=== PATIENT | male | born 1940 | race Caucasian/White ===

== ENCOUNTER 2020-01-28 20:29 | Inpatient (IN) | payer OTHER, SELFPAY ==
[~2020-01-28] VITALS: Ht 170.2 cm; Wt 81.2 kg
[2020-01-28 20:40] VITALS: BP 111/64
--- NOTE | 2020-01-28 20:40 | NUR ---
79 Y/O MALE BIBA, FROM ASSISTED SENIOR CARE FROM [facility]. PT HAD GROUND LEVEL FALL AND WAS C/O OF R PELVIS PAIN. PT IS POOR HISTORIAN. PT IS CONFUSED. PT DENIES PAIN AT THIS TIME. MEDHX: DM, ALZEHIMERS, DEMENTIA. NKA
--- NOTE | 2020-01-28 20:42 | NUR ---
XRAY AT BEDSIDE
--- NOTE | 2020-01-28 21:14 | NUR ---
LAB AT BEDSIDE
[2020-01-28] MEDS ORDERED: GLIP5TAB4 PO (21:20)
[2020-01-28] MEDS ORDERED: SENN-73 PO (21:20)
[2020-01-28] MEDS ORDERED: ALBU0.5S1 IH (21:20)
[2020-01-28] MEDS ORDERED: QUET25TA PO (21:20)
[2020-01-28] MEDS ORDERED: MSCON15 PO (21:20)
[2020-01-28] MEDS ORDERED: ASCO500T95 PO (21:20)
[2020-01-28] MEDS ORDERED: CHOL50005 PO (21:20)
[2020-01-28] MEDS ORDERED: [UNRECOGNIZED DRUG - CODE] PO (21:20)
[2020-01-28] MEDS ORDERED: ZINC220C28 PO (21:20)
[2020-01-28] MEDS ORDERED: ONDA4TAB PO (21:20)
[2020-01-28] MEDS ORDERED: ATI.5 PO (21:20)
--- NOTE | 2020-01-28 21:20 | NUR ---
URINE AND ZOE SWAB COLLECTED AND SENT TO LAB
[2020-01-28 21:34] LABS: BASOPHILS % (AUTO) 0.7 % (0.0-2.0); EOSINOPHILS # (AUTO) 0.1 K/uL (0-0.4); EOSINOPHILS % (AUTO) 1.7 % (0.0-4.0); HEMATOCRIT 23.1 % (36-52); HEMOGLOBIN 7.5 g/dL (12.0-18.0); LYMPHOCYTES # (AUTO) 1.3 K/uL (2.0-11.5); LYMPHOCYTES % (AUTO) 21.5 % (20.5-51.1); MEAN CORPUSCULAR HEMOGLOBIN 28 pg (27-31); MEAN CORPUSCULAR HGB CONC 33 g/dL (33-37); MEAN CORPUSCULAR VOLUME 84.9 fL (80-94); MONOCYTES # (AUTO) 0.7 K/uL (0.8-1.0); MONOCYTES % (AUTO) 12.6 % (1.7-9.3); NEUTROPHILS # (AUTO) 3.8 K/uL (1.8-7.7); NEUTROPHILS % (AUTO) 63.5 % (42.2-75.2); PLATELET COUNT (AUTO) 144 K/uL (140-450); RED BLOOD CELL COUNT(AUTO) 2.72 MIL/uL (4.20-6.10); RED CELL DISTRIBUTION WIDTH 14.6 % (11.6-13.7); WHITE BLOOD COUNT (AUTO) 5.9 K/uL (4.8-10.8)
[2020-01-28] MEDS ORDERED: NACL 0.9% 500 ML IV ONE (21:35)
--- NOTE | 2020-01-28 21:50 | NUR ---
PT TAKEN TO CT SCAN VIA KP
[2020-01-28 21:52] LABS: PROTHROMBIN TIME 11.1 secs (10.8-13.4)
--- NOTE | 2020-01-28 22:02 | NUR ---
PT RETURNED FROM CT SCAN
[2020-01-28 22:12] LABS: ALBUMIN 2.9 g/dL (3.4-5.0); APPEARANCE,URINE SL CLOUDY (CLEAR); ASPARTATE AMINOTRANSFERASE 15 U/L (15-37); BILIRUBIN,URINE NEGATIVE (NEGATIVE); BLOOD, URINE NEGATIVE (NEGATIVE); CARBON DIOXIDE 29.8 mmol/L (21-32); CHLORIDE 105 mmol/L (98-107); COLOR,URINE DARK YELLOW (YELLOW); CREATININE 0.8 mg/dL (0.6-1.3); GLUCOSE 237 mg/dL (74-106); LEUKOCYTE ESTERASE ,URINE NEGATIVE (NEGATIVE); NITRITE, URINE POSITIVE (NEGATIVE); POTASSIUM 3.8 mmol/L (3.5-5.1); SODIUM SERUM 140 mmol/L (136-145); TOTAL BILIRUBIN 0.3 mg/dL (0.0-1.0); UGLUCOSE NEGATIVE (NEGATIVE); UREA NITROGEN, BLOOD 25 mg/dL (7-18)
[2020-01-28 22:49] LABS: RBC,URINE 0-5 /HPF (0-5); WBC,URINE 0-5 /HPF (0-5)
--- NOTE | 2020-01-29 | NUR ---
PT HAS EYES CLOSED, RESPIRAITONS EVEN AND UNLABORED. CHEST RISE IS SYMMETRICAL. WILL CONTINUE TO MONITOR.
[2020-01-29] MEDS ORDERED: DEXTROSE 5% 1,000 ML IV ONE (00:20)
--- NOTE | 2020-01-29 02:45 | NUR ---
PT HAS EYES CLOSED, RESPIRAITONS EVEN AND UNLABORED. CHEST RISE IS SYMMETRICAL. WILL CONTINUE TO MONITOR.
--- NOTE | 2020-01-29 04:40 | NUR ---
PT HAS EYES CLOSED, RESPIRAITONS EVEN AND UNLABORED. CHEST RISE IS SYMMETRICAL. WILL CONTINUE TO MONITOR.
--- NOTE | 2020-01-29 05:39 | NUR ---
INSERTED IV R UPPER ARM 20 G.
--- NOTE | 2020-01-29 07:05 | NUR ---
UPDATED PT STATUS TO PT'S DAUGHTER MERT [phone]
--- NOTE | 2020-01-29 07:15 | NUR ---
REPORT GIVEN TO MARAH FLORES FOR CONTINUITY OF CARE
--- NOTE | 2020-01-29 07:20 | NUR ---
REPORT RECEIVED FROM ABIMBOLA FLORES FOR CONTINUITY OF CARE
--- NOTE | 2020-01-29 07:39 | NUR ---
PT, REPOSITIONED FOR COMFORT. LINEN, GOWN AND DIAPER CHANGE DONE. PT RESTING, VSS, NO SIGNS OF DISTRESS NOTED AT THIS TIME.
--- NOTE | 2020-01-29 09:41 | NUR ---
PT HAS EYES CLOSED, RESPIRATIONS EVEN AND UNLABORED. CHEST RISE IS SYMMETRICAL. VSS. WILL CONTINUE TO MONITOR.
[2020-01-29] MEDS ORDERED: LORazepam 2 MG/ML VIAL IM/IVP PRN (12:00)
[2020-01-29] MEDS ORDERED: ZOLPIDEM 5 MG TAB PO PRN (12:55)
[2020-01-29] MEDS ORDERED: POTASSIUM CHLORIDE 10 MEQ TABER PO PRN (12:55)
[2020-01-29] MEDS ORDERED: ONDANSETRON 4 MG/2 ML VIAL IM/IVP PRN (12:55)
[2020-01-29] MEDS ORDERED: ACETAMINOPHEN 325 MG TAB PO PRN (12:55)
[2020-01-29] MEDS ORDERED: DOCUSATE SODIUM 100 MG GELCAP PO PRN (12:55)
[2020-01-29] MEDS ORDERED: MAG SULF 2000 MG/WATER PREMIX 50 ML IV PRN (12:55)
[2020-01-29] MEDS ORDERED: ALBUTEROL SULFATE/IPRATROPIU 3 ML SOL IH PRN (13:10)
--- NOTE | 2020-01-29 13:45 | NUR ---
PT RESTLESS, PULLED OUT IV, PRESSURE/ DRESSING APPRIED, 20 G IV TO LEFT WRIST INSERTED AND COVERED WITH COBAN DRESSING. 5% DEXTROSE CONTINUED AT 60ML/HR
[2020-01-29] MEDS: LORazepam 2 MG/ML VIAL IM/IVP PRN (14:20)
[2020-01-29 14:25] LABS: BASOPHILS % (AUTO) 0.5 % (0.0-2.0); EOSINOPHILS % (AUTO) 0.4 % (0.0-4.0); HEMATOCRIT 23.2 % (36-52); HEMOGLOBIN 7.8 g/dL (12.0-18.0); LYMPHOCYTES # (AUTO) 1.7 K/uL (2.0-11.5); LYMPHOCYTES % (AUTO) 16.8 % (20.5-51.1); MEAN CORPUSCULAR HEMOGLOBIN 28 pg (27-31); MEAN CORPUSCULAR HGB CONC 34 g/dL (33-37); MEAN CORPUSCULAR VOLUME 84.1 fL (80-94); MONOCYTES # (AUTO) 0.9 K/uL (0.8-1.0); MONOCYTES % (AUTO) 9.3 % (1.7-9.3); NEUTROPHILS # (AUTO) 7.4 K/uL (1.8-7.7); PLATELET COUNT (AUTO) 145 K/uL (140-450); RED BLOOD CELL COUNT(AUTO) 2.76 MIL/uL (4.20-6.10); RED CELL DISTRIBUTION WIDTH 14.7 % (11.6-13.7); WHITE BLOOD COUNT (AUTO) 10.2 K/uL (4.8-10.8)
[2020-01-29] MEDS ORDERED: AZITHROMYCIN 250 MG TAB PO SCH (14:30)
[2020-01-29 14:40] LABS: ANION GAP 11.2 (8-16); CARBON DIOXIDE 26.1 mmol/L (21-32); CHLORIDE 103 mmol/L (98-107); CREATININE 0.7 mg/dL (0.6-1.3); GLUCOSE 230 mg/dL (74-106); POTASSIUM 3.3 mmol/L (3.5-5.1); SODIUM SERUM 137 mmol/L (136-145); UREA NITROGEN, BLOOD 15 mg/dL (7-18)
--- NOTE | 2020-01-29 14:43 | NUR ---
MRSA SWAB COLLECTED AND WALKED TO LAB
--- NOTE | 2020-01-29 14:45 | NUR ---
MRSA SWAB COMPLETED AND WALKED TO LAB
--- NOTE | 2020-01-29 14:50 | NUR ---
PT TAKEN TO CT
[2020-01-29 14:52] LABS: CHOL/HDL RATIO 3.6 (1-4.5); MAGNESIUM 1.9 mg/dL (1.8-2.4); PHOSPHORUS 2.2 mg/dL (2.5-4.9); THYROID STIMULATING HORMONE 1.06 uIU/mL (0.34-3.74)
--- NOTE | 2020-01-29 15:10 | NUR ---
PT RETURNED FROM CT
[2020-01-29] MEDS ORDERED: cefTRIAXone 1,000 MG VIAL ONE (15:11)
--- NOTE | 2020-01-29 16:10 | NUR ---
PT RESTLESS AND PULLING AT IV SITE, PT WAS REORIENTED AND POSITIONED FOR COMFORT, SIDERAILS UP X2. VSS
--- NOTE | 2020-01-29 16:36 | NUR ---
PT DAUGHTER MERT CALLED TO GET UPDATE ON PT, CONTACT INFO:
--- NOTE | 2020-01-29 17:43 | NUR ---
PT RESTLESS AND PULLING AT IV SITE, PT WAS REORIENTED AND POSITIONED FOR COMFORT, SIDERAILS UP X2. VSS
[2020-01-29] MEDS: ALBUTEROL SULFATE/IPRATROPIU 3 ML SOL IH SCH (18:00)
--- NOTE | 2020-01-29 18:44 | NUR ---
PT CONTINUES TO BE RESTLESS AND PULLING AT IV SITE, COBAN RE APPLIED TO IV SITE, PT WAS REORIENTED, CLEANED AND POSITIONED FOR COMFORT, SIDERAILS UP X2. VSS
--- NOTE | 2020-01-29 19:09 | NUR ---
RECEIVED REPORT FROM SANDRA CRYSTAL FOR CONTINUATION OF CARE.
--- NOTE | 2020-01-29 19:11 | NUR ---
Pt report given to YENIFER/DANIELLE FLORES. Transfer of care at this time.
--- NOTE | 2020-01-29 19:15 | NUR ---
PT IS LAYING DOWN, VISIBLE RISE AND FALL OF CHEST NOTED. BED IS LOCKED AND IN LOWEST POSITION, PT IS CONNECTED TO THE HOTEL OPERATION MANAGER. PT IS NOT IN ANY ACUTE DISTRESS AT THIS TIME. WILL CONTINUE TO MONITOR.
--- NOTE | 2020-01-29 22:02 | NUR ---
PT LAYING IN BED, TAKING OFF PIPE INSPECTOR AND PULSE OX. PT BECAME AGGRESSIVE WHEN TRYING TO REPLACE CARDIAC ELECTRODES BY GRABBING AND SQUEEZING ARM.
--- NOTE | 2020-01-29 22:41 | NUR ---
PT WAS ATTEMPTING TO CHEW PULSE OX, REMOVED FROM PTS REACH. PT POSITIONED FOR COMFORT. BED IS LOCKED AND IN LOWEST POSITION. PT IS NOT IN ANY ACUTE DISTRESS AT THIS TIME. WILL CONTINUE TO MONITOR.
--- NOTE | 2020-01-30 | NUR ---
CALLED SANDRA MENDEZ BY PHONE TO GIVE REPORT FOR TRANSFER OF CARE.
--- NOTE | 2020-01-30 00:20 | NUR ---
RECEIVED PATIENT IN STABLE CONDITION FROM ER FOR CONTINUITY OF CARE. AAOX1, ABLE TO MAKE SIMPLE NEEDS KNOWN. RESPIRATIONS EVEN, UNLABORED. SKIN ASSESSMENT COMPLETE. SKIN WARM, DRY AND INTACT. PATIENT C/O RIGHT HIP PAIN 11/16. WILL MEDICATE ORDERED. ABDOMEN SOFT, NONTENDER, NONDISTENDED. BOWEL SOUNDS ACTIVE X4 QUADRANTS. PATIENT IS INCONTINENT OF B/B. PATIENT ORIENTED TO ROOM/STAFF AND CALL LIGHT. PLAN OF CARE DISCUSSED. MSRA SCREEN COMPLETED. SAFETY PRECAUTIONS IN PLACE. CALL LIGHT WITHIN REACH.
--- NOTE | 2020-01-30 00:20 | NUR ---
Patient will be admitted to care of DR. BROTHERS. Admited to TELEMETRY. Will go to room 106B. Belongings list completed. Report to SANDRA MENDEZ.
[2020-01-30 00:25] VITALS: BP 132/84
[2020-01-30] MEDS: MORPHINE SULFATE 2 MG/ML SYR IVP PRN ×2 (00:35→04:33)
--- NOTE | 2020-01-30 01:00 | NUR ---
PATIENT WITH EPISODES OF CONFUSION. CONTINUES TO REMOVE LEADS. RISKS AND BENEFITS EXPLAINED. PATIENT CANNOT COMPREHEND. FREQUENT ROUNDS BY ALL STAFF. SAFETY PRECAUTIONS IN PLACE. CALL LIGHT WITHIN REACH.
[2020-01-30] MEDS: LORazepam 2 MG/ML VIAL IM/IVP PRN (02:09)
--- NOTE | 2020-01-30 03:48 | NUR ---
MADE ROUNDS. PATIENT IS RESTING COMFORTABLY IN BED. NO C/O PAIN. NO S/S ACUTE DISTRESS. CALL LIGHT WITHIN REACH. SAFETY PRECAUTIONS IN PLACE.
[2020-01-30 04:08] VITALS: BP 131/76
--- NOTE | 2020-01-30 05:50 | NUR ---
PATIENT IS RESTING COMFORTABLY IN BED. NO S/S ACUTE DISTRESS. INCONTINENT CARE RENDERED. SAFETY PRECAUTIONS IN PLACE. CALL LIGHT WITHIN REACH.
[2020-01-30] MEDS: ALBUTEROL SULFATE/IPRATROPIU 3 ML SOL IH SCH ×3 (06:00→18:00)
--- NOTE | 2020-01-30 07:15 | NUR ---
RECEIVED BEDSIDE REPORT FROM NIGHTSHIFT NURSE. PT RESTING IN BED. ABLE TO MAKE SOME NEEDS KNOWN. RESPIRATIONS EVEN AND UNLABORED WITH NO SOB OR RESPIRATORY DISTRESS. SKIN WARM AND DRY TO TOUCH. IV SITE IN LFA 20G IS CLEAN, DRY, AND INTACT. SAFETY MEASURES IN PLACE. WILL CONTINUE TO MONITOR
[2020-01-30 07:29] LABS: BASOPHILS % (AUTO) 0.5 % (0.0-2.0); EOSINOPHILS % (AUTO) 0.2 % (0.0-4.0); HEMATOCRIT 23.5 % (36-52); HEMOGLOBIN 7.9 g/dL (12.0-18.0); LYMPHOCYTES # (AUTO) 0.7 K/uL (2.0-11.5); LYMPHOCYTES % (AUTO) 7.9 % (20.5-51.1); MEAN CORPUSCULAR HEMOGLOBIN 29 pg (27-31); MEAN CORPUSCULAR HGB CONC 34 g/dL (33-37); MEAN CORPUSCULAR VOLUME 85.3 fL (80-94); MONOCYTES % (AUTO) 10.7 % (1.7-9.3); NEUTROPHILS # (AUTO) 7.2 K/uL (1.8-7.7); NEUTROPHILS % (AUTO) 80.7 % (42.2-75.2); PLATELET COUNT (AUTO) 151 K/uL (140-450); RED BLOOD CELL COUNT(AUTO) 2.75 MIL/uL (4.20-6.10); RED CELL DISTRIBUTION WIDTH 14.6 % (11.6-13.7); WHITE BLOOD COUNT (AUTO) 8.9 K/uL (4.8-10.8)
[2020-01-30 07:35] LABS: ANION GAP 13.3 (8-16); CARBON DIOXIDE 26.8 mmol/L (21-32); CHLORIDE 103 mmol/L (98-107); CREATININE 0.6 mg/dL (0.6-1.3); GLUCOSE 255 mg/dL (74-106); POTASSIUM 4.1 mmol/L (3.5-5.1); SODIUM SERUM 139 mmol/L (136-145); UREA NITROGEN, BLOOD 17 mg/dL (7-18)
[2020-01-30 07:43] LABS: PHOSPHORUS 3.1 mg/dL (2.5-4.9)
[2020-01-30 08:00] VITALS: BP 123/57
[2020-01-30 08:07] LABS: T4 (THYROXINE) 6.9 ug/dL (4.5-12.0)
[2020-01-30] MEDS: AZITHROMYCIN 250 MG TAB PO SCH (08:58)
--- NOTE | 2020-01-30 09:05 | NUR ---
ADMINISTERED SCHED MED PRESCRIBED PER MD ORDER. PT TOLERATED WELL. MEDICATION EDUCATION PERFORMED. PT VERBALIZED UNDERSTANDING. SAFETY MEASURES IN PLACE. WILL CONTINUE TO MONITOR
--- NOTE | 2020-01-30 11:15 | NUR ---
SOCIAL WORK NOTE: Patient's Orientation Unable To Assess Information Provided By MERT GUERRA/DEBORAH HO - CHILDREN Comments SW WAS UNABLE TO MEET PATIENT AT BEDSIDE. SW COMPLETED ASSESSMENT WITH SON: DEBORAH HO AND DAUGHTER: MERT GUERRA. Appointment Clerk, Realtionship and Phone Number DEBORAH HO SON [phone] MERT GUERRA DAUGHTER [phone] Healthcare Power of Maint Mechanic No Does Patient Have a POLST Yes Identifying Problems No Social Work Triggers Is A Social Work Consult Needed No Mandate Report Filed No Explanation Of Identifying Problems PATIENT IS AN 79-YEAR-OLD MALE ADMITTED FOR SEVERE ANEMIA AND RIGHT HIP FRACTURE. PATIENT HAS PMHX OF ALZHEIMER'S, FRACTURE OF RIGHT PROXIMAL FEMUR, BPH, CAD, AND PNEUMONIA. PATIENT WAS ADMITTED FROM [facility]. Admitted From Assisted Living/Resident Hospice Provider [facility] - [phone] Pre-Admission Level Of Functioning Status Total Care Level Of Functioning Comment PER DAUGHTER, PATIENT REQUIRES TOTAL ASSISTANCE. PATIENT NEEDS ASSISTANCE PREPARING MEALS, GETTING DRESSED, BATHING, TOILETING, AND NEEDS CONSTANT MONITORING. Prior Resources/Services Used In Last 12 Months Assisted Living Prior DME No Prior DME Used Dialysis Comments N/A Living Situation Asst'd Living/Board &Care Other Living Situation/Comment PATIENT IS A RESIDENT AT [facility] [phone] Patient Had Caregiver No Home Support No Caregiver Issues Financial Issues No Known Financial Issue Referral To The Financial Counselor Needed No Factors/Needs No D/C Needs Identified Explanation And Or Other Factors Affecting/Possible DC Needs PER DAUGHTER, FAMILY WOULD PREFER IF PATIENT WAS DISCHARGED TO SNF. Pt/Rep Participated In Discharge Plan Yes Patient/Family Agress With Discharge Plan Yes Discharge Plan Comments TENTATIVE DISCHARGE PLAN IS FOR PATIENT TO BE DISCHARGED TO SNF. DC Plan Status Initiated Addendum: 01/31/20 at 1121 by Carroll Krueger HERMINIO CONTACTED [facility] [phone]. HERMINIO VERIFIED THAT PATIENT WAS RECEIVING SERVICES FROM HOSPICE AND SPOKE TO SANIA. PER SANIA, PATIENT WAS RECEIVING SERVICES PRIOR TO HOSPITALIZATION.
[2020-01-30 12:00] VITALS: BP 130/72
--- NOTE | 2020-01-30 12:00 | NUR ---
FOUND PATIENT HAS TAKEN OUT INTACT IV CANNULA. PT CONFUSED AND DID NOT KNOW WHY HE HAD IT THERE. NEW IV INSERTED IN LAC 20G IS CLEAN, DRY, AND INTACT. SAFETY MEASURES IN PLACE. WILL CONTINUE TO MONITOR
--- NOTE | 2020-01-30 13:28 | NUR ---
PT WOULD NOT ALLOW RT TO PLACE PULSE OX AND GIVE BREATHING TX PT STATED NO
--- NOTE | 2020-01-30 15:30 | NUR ---
FOUND PT PLAYING WITH INTACT IV CANNULA. PT HAS REMOVED INTACT IV CANNULA. NO SIGNS OF DISTRESS NOTED. NEW IV SITE PLACED IN LFA 20G IS CLEAN, DRY, AND, INTACT. WILL CONTINUE TO MONITOR
--- NOTE | 2020-01-30 15:46 | NUR ---
ADMINISTERED SCHED MED PRESCRIBED PER MD ORDER. PT TOLERATED WELL. MEDICATION EDUCATION PERFORMED. PT VERBALIZED UNDERSTANDING. SAFETY MEASURES IN PLACE. WILL CONTINUE TO MONITOR
[2020-01-30] MEDS ORDERED: BACITRACIN 50000 UNITS/1 VIAL ONE (15:56)
--- NOTE | 2020-01-30 16:21 | NUR ---
PATIENT TAKEN OFF TO SURGERY. REPORT GIVEN AT BEDSIDE. WILL CONTINUE TO MONITOR
[2020-01-30] MEDS: BLOOD GLUCOSE MONITORING 1 DEV DEV FS SCH ×2 (16:30→21:39)
[2020-01-30] MEDS ORDERED: ETOMIDATE 20 MG/10 ML VIAL IVP ONE (16:46)
[2020-01-30] MEDS ORDERED: SUCCINYLCHOLINE CHLORIDE 200 MG/10 ML VIAL IVP ONE (17:00)
[2020-01-30] MEDS ORDERED: METOCLOPRAMIDE 10 MG/2 ML INJ VIAL ONE (17:00)
[2020-01-30] MEDS ORDERED: GLYCOPYRROLATE 0.2 MG/ML VIAL ONE (17:00)
[2020-01-30] MEDS ORDERED: ONDANSETRON 4 MG/2 ML VIAL ONE (17:00)
[2020-01-30] MEDS ORDERED: SEVOFLURANE 250 ML BTL INH ONE (17:00)
[2020-01-30] MEDS ORDERED: ROCURONIUM 50 MG/5 ML VIAL IV ONE (17:00)
[2020-01-30] MEDS ORDERED: DEXAMETHASONE 4 MG/ML VIAL ONE (17:00)
[2020-01-30] MEDS ORDERED: MIDAZOLAM 2 MG/2 ML VIAL ONE (17:00)
[2020-01-30] MEDS ORDERED: NEOSTIGMINE 1:1000 10 MG/10 ML VIAL ONE (17:00)
[2020-01-30] MEDS ORDERED: fentaNYL citrate 0.05 MG/ML VIAL ONE (17:00)
[2020-01-30] MEDS ORDERED: HYDROmorphone 1 MG/ML AMP IVP PRN (17:50)
[2020-01-30] MEDS ORDERED: MEPERIDINE 25 MG/ML SYR IVP PRN (17:50)
[2020-01-30] MEDS ORDERED: NACL 0.9% 1,000 ML IV SCH (17:50)
[2020-01-30] MEDS ORDERED: ONDANSETRON 4 MG/2 ML VIAL IVP PRN (17:50)
[2020-01-30] MEDS ORDERED: BLOOD GLUCOSE MONITORING 1 DEV DEV FS SCH (17:50)
--- NOTE | 2020-01-30 18:13 | NUR ---
PATIENT STILL IN SURGERY. WILL CONTINUE TO MONITOR
[2020-01-30] MEDS ORDERED: DEXTROSE 50% 50 ML SYR IVP PRN (18:40)
--- NOTE | 2020-01-30 19:28 | NUR ---
ENDORSED AT BEDSIDE TO NIGHTSHIFT NURSE. PT IS STABLE
--- NOTE | 2020-01-30 19:33 | NUR ---
RECEIVED REPORT FROM DAY SHIFT NURSE. PT STILL IN SURGERY.
[2020-01-30 20:00] VITALS: BP 97/58
--- NOTE | 2020-01-30 20:20 | NUR ---
PT CAME BACK FROM SURGERY VIA GURNEY. RECEIVED REPORT FROM OR NURSE. PT DROWSY BUT AROUSABLE. PT WITH 2 DRESSINGS ON RIGHT HIP AREA. DRESSING CLEAN, DRY, AND INTACT. NO BLEEDING NOTED. PT WITH LOPEZ CATHETER IN PLACE, DRAINING WELL TO YELLOW URINE. IV ACCESS ON RIGHT HAND G20 IN PLACE, IVF INFUSING WELL. VS STABLE. NO S/SX OF DISTRESS NOTED. PT KEPT COMFORTABLE. SAFETY MEASURES IN PLACE. CALL LIGHT WITHIN REACH. WILL CONTINUE TO MONITOR.
--- NOTE | 2020-01-30 21:39 | NUR ---
BLOOD SUGAR 234, INSULIN COVERAGE GIVEN ORDERED. PT STILL DROWSY BUT AROUSABLE. NO S/SX OF DISTRESS NOTED. SAFETY MEASURES IN PLACE. WILL CONTINUE TO MONITOR.
[2020-01-30] MEDS: INSULIN LISPRO SLIDING SCALE 100 UNITS/ML VIAL SUBQ PRN (21:47)
--- NOTE | 2020-01-30 22:28 | NUR ---
PT ASLEEP. VISIBLE CHEST RISE AND FALL NOTED. PT NOT IN DISTRESS. PT KEPT COMFORTABLE. SAFETY MEASURES IN PLACE. WILL CONTINUE TO MONITOR.
[2020-01-31] VITALS: BP 125/69
--- NOTE | 2020-01-31 00:04 | NUR ---
VS STABLE. PT IN BED SLEEPING. NO S/SX OF PAIN OR DISCOMFORT NOTED. PT NOT IN DISTRESS. PT KEPT COMFORTABLE. SAFETY MEASURES IN PLACE. CALL LIGHT WITHIN REACH. WILL CONTINUE TO MONITOR.
--- NOTE | 2020-01-31 02:01 | NUR ---
PT IN BED SLEEPING. VISIBLE CHEST RISE AND FALL NOTED. PT NOT IN DISTRESS. NO S/SX OF DISTRESS NOTED. PT KEPT COMFORTABLE. SAFETY MEASURES IN PLACE. CALL LIGHT WITHIN REACH. WILL CONTINUE TO MONITOR.
[2020-01-31 04:00] VITALS: BP 115/64
--- NOTE | 2020-01-31 04:07 | NUR ---
VS STABLE. PT IN BED RESTING. NO S/SX OF PAIN OR DISCOMFORT. PT KEPT COMFORTABLE. SAFETY MEASURES IN PLACE. CALL LIGHT WITHIN REACH. WILL CONTINUE TO MONITOR.
[2020-01-31] MEDS: ALBUTEROL SULFATE/IPRATROPIU 3 ML SOL IH SCH ×3 (06:00→19:38)
[2020-01-31] MEDS: BLOOD GLUCOSE MONITORING 1 DEV DEV FS SCH ×4 (06:48→20:48)
[2020-01-31] MEDS: MORPHINE SULFATE 2 MG/ML SYR IVP PRN (06:49)
--- NOTE | 2020-01-31 06:49 | NUR ---
PT COMPLAINING OF HIP PAIN 11/16. PRN PAIN MEDICATION GIVEN ORDERED. WILL CONTINUE TO MONITOR.
[2020-01-31] MEDS: INSULIN LISPRO SLIDING SCALE 100 UNITS/ML VIAL SUBQ PRN ×4 (06:54→20:47)
--- NOTE | 2020-01-31 07:17 | NUR ---
ENDORSED TO DAY SHIFT NURSE FOR CONTINUITY OF CARE.
--- NOTE | 2020-01-31 07:20 | NUR ---
REC'D BEDSIDE REPORT FROM NIGHTSHIFT NURSE. PATIENT IS IN BED RESTING. WILL CONT W/ POC.
[2020-01-31 08:00] VITALS: BP 119/53
[2020-01-31 08:01] LABS: ANION GAP 13.5 (8-16); CARBON DIOXIDE 24.7 mmol/L (21-32); CHLORIDE 106 mmol/L (98-107); CREATININE 0.6 mg/dL (0.6-1.3); GLUCOSE 253 mg/dL (74-106); POTASSIUM 4.2 mmol/L (3.5-5.1); SODIUM SERUM 140 mmol/L (136-145); UREA NITROGEN, BLOOD 17 mg/dL (7-18)
[2020-01-31 08:06] LABS: PHOSPHORUS 3.2 mg/dL (2.5-4.9)
[2020-01-31 08:10] LABS: BASOPHILS % (AUTO) 0.1 % (0.0-2.0); HEMATOCRIT 20.8 % (36-52); LYMPHOCYTES # (AUTO) 0.7 K/uL (2.0-11.5); MEAN CORPUSCULAR HEMOGLOBIN 28 pg (27-31); MEAN CORPUSCULAR HGB CONC 33 g/dL (33-37); MEAN CORPUSCULAR VOLUME 84.7 fL (80-94); MONOCYTES # (AUTO) 0.8 K/uL (0.8-1.0); MONOCYTES % (AUTO) 10.1 % (1.7-9.3); NEUTROPHILS # (AUTO) 6.1 K/uL (1.8-7.7); NEUTROPHILS % (AUTO) 80.8 % (42.2-75.2); PLATELET COUNT (AUTO) 182 K/uL (140-450); RED BLOOD CELL COUNT(AUTO) 2.45 MIL/uL (4.20-6.10); RED CELL DISTRIBUTION WIDTH 14.8 % (11.6-13.7); WHITE BLOOD COUNT (AUTO) 7.6 K/uL (4.8-10.8)
[2020-01-31] MEDS: AZITHROMYCIN 250 MG TAB PO SCH (08:37)
[2020-01-31] MEDS: LORazepam 2 MG/ML VIAL IM/IVP PRN ×2 (08:37→16:46)
--- NOTE | 2020-01-31 08:48 | NUR ---
ADMINISTERED SCHED MED PRESCRIBED PER MD ORDER. PT TOLERATED WELL. PT TOOK OFF TELE MONITOR, GOWN, SHEETS AND IS ATTEMPTING TO TAKE OUT LOPEZ AND INTACT IV CANNULA. PT IS AAOX0 AND IS CONFUSED AND DOES NOT UNDERSTAND AFTER REDIRECTING. ADMINISTERED PRN ATIVAN PRESCRIBED PER MD ORDER. PT TOLERATED WELL. WILL CONTINUE TO MONITOR
[2020-01-31 09:08] LABS: HEMOGLOBIN 6.8 g/dL (12.0-18.0)
--- NOTE | 2020-01-31 09:45 | NUR ---
PT RESTING IN BED. ABLE TO MAKE NEEDS KNOWN. RESPIRATIONS EVEN AND UNLABORED WITH NO SOB OR RESPIRATORY DISTRESS. SKIN WARM AND DRY TO TOUCH. WILL CONTINUE TO MONITOR
--- NOTE | 2020-01-31 11:30 | NUR ---
PT BLOOD SUGAR IS 242. PRN INSULIN WILL BE ADMINISTERED WITH NEXT MEAL. WILL CONTINUE TO MONITOR
[2020-01-31 12:00] VITALS: BP 109/58
--- NOTE | 2020-01-31 12:30 | NUR ---
OBTAINED VERBAL PHONE CONSENT FOR BLOOD TRANSFUSION FROM DAUGHTER MERT [phone] KOTHARI IN CHART. WILL CONTINUE TO MONITOR
--- NOTE | 2020-01-31 13:30 | NUR ---
PT LYING IN BED AND STILL ATTEMPTING TO PULL OUT LOPEZ, IV LINE, TELE MONITOR, GOWN, AND LINENS. PT IS CONFUSED AND AAOX0. PT STILL CONFUSED AFTER REDIRECTING. WILL CONTINUE TO MONITOR
--- NOTE | 2020-01-31 14:21 | NUR ---
DC PLANNING Prior to admit pt was at assisted living facility with [facility], [facility]. Called & spoke with dtr Sade Pittman, ph [phone], states pt was under hospice but will hold off on Hospice for now wants pt to discharge to SNF for rehab. Will consider hospice in future after rehab if pt still requires hospice. Would like SNF with no preference, would like one in [facility], dtr lives in [place], & with memory care unit/locked unit since pt with Alzheimers. Pt now Medicare since was under Hospice. Called [facility], joey [phone] fax [phone], CM assigned is Luly, not avail at this time. Verified that pt now under Medicare A&B since was under hospice but will resume under [facility] starting February 06. States to fax SNF packet to them & they will assist in SNF placement since will revert to them Feb 06. Aware of family preference. Dc transportation planner faxing packet.
--- NOTE | 2020-01-31 14:25 | NUR ---
DC DRIVE IN TELLER: FAXED PATIENTS CLINICALS TO [facility] . [phone] FAX [phone] Addendum: 01/31/20 at 1529 by Omaira Rosario CM DC DRIVE IN TELLER: FOLLOWED UP WITH [facility] AND SPOKE TO ESE GALLARDO THEY HAVE RECEIVED PATIENTS CLINICALS. Addendum: 02/01/20 at 1625 by Ana Mccrary RN DC PLANNING: RECEIVED A CALL FROM [facility] [phone] STATED PT IS WITH THEM AND WOULD LIKE TO CONTINUE. PER ESE NOTED PT'S DAUGHTER WANTED PT TO GO TO SNF FOR PT. NOTIFIED [facility] SPOKE WITH ENZO MULLIGAN PT IS MEDICARE CAN GO TO ANY CONTRACTED FACILITY AND [facility] WILL METAL FURNITURE REPAIRER ON FEB 07, 2020 . FAXED TO [facility] AND [facility] .ESE TO FOLLOW
--- NOTE | 2020-01-31 14:40 | NUR ---
BLOOD TRANSFUSION BEGAN. V/S: BP 113/62, RR 17, PULSE 125, T 97.6. PATIENT TOLERATING TREATMENT. SAFETY WRIST RESTRAINTS APPLIED PATIENT ATTEMPTED TO PULL AT IV TUBING. SAFETY MEASURES IN PLACE. WILL CONT TO MONITOR. Addendum: 01/31/20 at 1817 by Corinna Cooper RN RN SAFETY WRIST RESTRAINTS NOT PLACED ON PATIENT. INCORRECT NOTE ENTERED.
--- NOTE | 2020-01-31 15:00 | NUR ---
BLOOD TRANSFUSION V/S CHECK: BP 105/56, RR 14, PULSE 103, O2 97% RA, TEMP 97.1. PATIENT IS RESTING IN BED. SAFETY MEASURES IN PLACE. WILL CONT TO MONITOR.
[2020-01-31 16:00] VITALS: BP 121/76
--- NOTE | 2020-01-31 16:00 | NUR ---
PT COMPLAINED OF IV SITE PAIN IN L HAND 20G. IV SITE NO LONGER FLUSHES OR HAS ADEQUATE BLOOD RETURN. NEW INTACT IV INSERTION IS IN RAC 24G IS CLEAN, DRY, AND INTACT. PT PULLED LOPEZ AT TUBE WHICH HAS CAUSED A MALFUNCTION IN THE LOPEZ. NEW LOPEZ CATH INSERTED 16FR IS CLEAN, DRY, AND INTACT. EDUCATED PT ON IMPORTANCE OF LOPEZ MAINTAINING. PT NEEDS MORE UNDERSTANDING. SAFETY MEASURES IN PLACE. WILL CONTINUE TO MONITOR
--- NOTE | 2020-01-31 17:07 | NUR ---
ADMINISTERED PRN MEDS PER PRESCRIBED MD ORDER. PATIENT TOLERATED WELL. UNABLE TO PROVIDE MEDICATION EDUCATION, POLISH SPEAKING ONLY, REINFORCEMENT NEEDED. SAFETY MEASURES IN PLACE. WILL CONT TO MONITOR.
--- NOTE | 2020-01-31 18:15 | NUR ---
PT FINISHED ONE UNIT OF PRBC. SAFETY MEASURES IN PLACE. WILL CONTINUE TO MONITOR
[2020-01-31 20:00] VITALS: BP 128/74
[2020-01-31] MEDS ORDERED: ENOXAPARIN 40 MG/0.4 ML SYR SUBQ SCH (20:00)
--- NOTE | 2020-01-31 20:00 | NUR ---
RECEIVED BEDSIDE REPORT FROM DAY RN FOR CONTINUITY OF CARE. PT AWAKE AND LAYING IN BED WATCHING TV. PT SPEAKS GUATEMALAN ONLY AND HIM SPECIALIST PROVIDED. PT IS CONFUSED. SP RIGHT HI ORIF DAY 1. RIGHT HIP DRESSING C/D/I, NO DRAINAGE OR OOZING NOTED. + PALPABLE DP/PT BILATERAL. GOOD PLANTAR FLEXION AND EXTENSION BILATERAL. NO DROP FOOT NOTED. IV ON THE RT AC 24 GAUGE,WRAPPED WITH KERLIX,SALINE LOCK. FALL PRECAUTION IMPLEMENTED. BED IN LOW POSITION,SIDE RAILS UP AND BED ALARM ON. VSS, AFEBRILE, SATING 100% ON RA. ST WITH BBB AND PVC ON DISEASE CONTROL INSPECTOR, HR-128. CALL LIGHT WITHIN REACH. WILL CONTINUE POC AND MONITORING.
--- NOTE | 2020-01-31 21:30 | NUR ---
CHECKED PT BLOOD SUGAR, 213. GAVE 4 UNITS HUMALOG SS ORDERED. NO OTHER MEDS DUE AT THIS TIME.
--- NOTE | 2020-01-31 22:57 | NUR ---
TEXTED DR BROTHERS TO GET AN ORDER FOR WRIST RESTRAINT BECAUSE PT PULLED OUT HIS IV FOR THE 4TH TIME AND TRYING TO PULL OUT HIS CATHETER AND TAKING OFF HIS SELF CONTAINED BEHAVIOR UNIT TEACHER & GOWN. DR BROTHERS TEXTED BACK AND ORDERED TO HOLD OFF FOR THE RETRAINT AND PER DR BROTHERS OK NOT TO PUT ANOTHER IV FOR NOW.
[2020-02-01] VITALS: BP 127/70
--- NOTE | 2020-02-01 | NUR ---
PATIENT VITAL SIGNS STABLE,AFEBRILE, SATING 99% ON RA. ST WITH BBB ON FINISH GRINDER, HR-101.
--- NOTE | 2020-02-01 02:00 | NUR ---
PATIENT ASLEEP AT THIS TIME. VISIBLE CHEST RISE AND FALL NOTED. SAFETY MEASURES IN PLACED.
[2020-02-01 04:00] VITALS: BP 130/71
--- NOTE | 2020-02-01 04:00 | NUR ---
PATIENT VITAL SIGNS STABLE,AFEBRILE, SATING 99% ON RA. ST WITH BBB & PAC ON ICE CREAM SHOP ASSOCIATE, HR-106. NO COMPLAIN OF PAIN AT THIS TIME.
--- NOTE | 2020-02-01 06:17 | NUR ---
PT STABLE. NO ACUTE EVENTS THROUGHOUT THE NIGHT. NO SIGN AND SYMPTOMS OF DISTRESS NOTED AT THIS TIME. NO COMPLAIN OF PAIN. ALL NEEDS ATTENDED. CALL LIGHT WITHIN REACH. WILL ENDORSE THE PT TO THE ONCOMING RN FOR CONTINUITY OF CARE.
[2020-02-01] MEDS: ALBUTEROL SULFATE/IPRATROPIU 3 ML SOL IH SCH ×2 (06:30→12:00)
[2020-02-01] MEDS: BLOOD GLUCOSE MONITORING 1 DEV DEV FS SCH ×4 (06:34→21:07)
[2020-02-01] MEDS: INSULIN LISPRO SLIDING SCALE 100 UNITS/ML VIAL SUBQ PRN ×4 (06:34→21:07)
--- NOTE | 2020-02-01 07:26 | NUR ---
PT STABLE. ENDORSED THE PT TO THE DAY RN YENY FOR CONTINUITY OF CARE. SIGNING OFF.
[2020-02-01 07:39] LABS: BASOPHILS % (AUTO) 0.6 % (0.0-2.0); EOSINOPHILS # (AUTO) 0.1 K/uL (0-0.4); EOSINOPHILS % (AUTO) 1.3 % (0.0-4.0); HEMOGLOBIN 7.7 g/dL (12.0-18.0); LYMPHOCYTES # (AUTO) 1.1 K/uL (2.0-11.5); LYMPHOCYTES % (AUTO) 16.5 % (20.5-51.1); MEAN CORPUSCULAR HEMOGLOBIN 28 pg (27-31); MEAN CORPUSCULAR HGB CONC 33 g/dL (33-37); MEAN CORPUSCULAR VOLUME 84.5 fL (80-94); MONOCYTES # (AUTO) 0.7 K/uL (0.8-1.0); NEUTROPHILS # (AUTO) 4.7 K/uL (1.8-7.7); NEUTROPHILS % (AUTO) 70.6 % (42.2-75.2); PLATELET COUNT (AUTO) 189 K/uL (140-450); RED BLOOD CELL COUNT(AUTO) 2.73 MIL/uL (4.20-6.10); RED CELL DISTRIBUTION WIDTH 14.6 % (11.6-13.7); WHITE BLOOD COUNT (AUTO) 6.7 K/uL (4.8-10.8)
[2020-02-01 07:46] LABS: ANION GAP 11.8 (8-16); CARBON DIOXIDE 27.7 mmol/L (21-32); CHLORIDE 107 mmol/L (98-107); CREATININE 0.6 mg/dL (0.6-1.3); GLUCOSE 252 mg/dL (74-106); POTASSIUM 3.5 mmol/L (3.5-5.1); SODIUM SERUM 143 mmol/L (136-145); UREA NITROGEN, BLOOD 16 mg/dL (7-18)
[2020-02-01 07:50] LABS: MAGNESIUM 1.9 mg/dL (1.8-2.4); PHOSPHORUS 2.4 mg/dL (2.5-4.9)
--- NOTE | 2020-02-01 08:00 | NUR ---
PATEINT IS CONFUSED. AOX0 MOHAWK SPEAKING. PATEINT HAS NO IV ACCESS SINCE LAST NIGHT PER RN REPORT MD AWARE. PATIENTS VITALS STABLE.
[2020-02-01] MEDS: AZITHROMYCIN 250 MG TAB PO SCH (08:26)
[2020-02-01] MEDS: TAMSULOSIN 0.4 MG CAP PO SCH (08:28)
[2020-02-01] MEDS: HYDROcodone/APAP 5/325 MG 1 TAB TAB PO PRN (08:44)
[2020-02-01] MEDS ORDERED: ERGOCALCIFEROL 50,000 IU SGL PO SCH (09:00)
--- NOTE | 2020-02-01 09:20 | NUR ---
PATIENT RECEIVED NORCO PRN DUE TO PAIN TO WORK WITH PT. PATIENT WAS ABLE TO TAKE SOME STEPS WITH PT.
--- NOTE | 2020-02-01 11:57 | NUR ---
PAGED DR SANDY, PATIENTS BG IS 417
--- NOTE | 2020-02-01 12:39 | NUR ---
GO BY SLIDING SCALE PER DR SANDY ORDER FOR PATIENTS BG 417. 10 UNITS WERE GIVEN. WILL MONITOR.
[2020-02-01 18:31] VITALS: BP 136/67
--- NOTE | 2020-02-01 19:42 | NUR ---
PATIENT IN BED HAVING DINNER. VITALS STABLE. PATIENT EATS INDEPENDENTLY BUT EATS VERY SLOW. NO COMPLAINTS OF PAIN OR DISCOMFORT AT THIS TIME. REPORT GIVEN TO PRIYANK TURNER.
--- NOTE | 2020-02-01 19:45 | NUR ---
RECEIVED BEDSIDE REPORT FROM DAY RN FOR CONTINUITY OF CARE. PT AWAKE AND SITTING UP IN BED EATING DINNER. PT SPEAKS SYRIAC ONLY AND TOWEL CABINET REPAIRER PROVIDED. PT IS CONFUSED. SP RIGHT HIP ORIF DAY 2. RIGHT HIP DRESSING C/D/I, NO DRAINAGE OR OOZING NOTED. + PALPABLE DP/PT BILATERAL. GOOD PLANTAR FLEXION AND EXTENSION BILATERAL. NO DROP FOOT NOTED. PT HAS NO IV AND MD AWARE. FALL PRECAUTION IMPLEMENTED. BED IN LOW POSITION,SIDE RAILS UP AND BED ALARM ON. VSS, AFEBRILE, SATING 98% ON RA. ST WITH BBB ON WATCH LEADER, HR-115. CALL LIGHT WITHIN REACH. WILL CONTINUE POC AND MONITORING.
[2020-02-01 20:00] VITALS: BP 157/83
--- NOTE | 2020-02-01 20:12 | NUR ---
GOT REPORT FROM CRM SOLUTION ARCHITECT EARLIER AND STATED THAT THE PT HAS BEEN OFF HEPARIN DRIP SINCE THIS AM BECAUSE PT IV GOT PULLED OUT AND SHE WAS NOT ABLE TO PUT AN IV UNTIL NOW. NOTIFIED DR BROTHERS AND AWARE. ORDERED TO CALL PHARMACY FOR DOSING. CALLED PHARMACY AND SPOKE WITH COOKIE HERNDON AND AWARE THAT THE PT HAS BEEN OFF HEPARIN DRIP SINCE THIS AM UNTIL NOW. PER PHARMACIST COOKIE, ORDER STAT PTT TO SEE WHAT IS THE PATIENT PTT BEFORE STARTING THE HEPARIN DRIP. ORDERED STAT PTT. Addendum: 02/01/20 at 2018 by Livia Coles RN RN WRONG PT ENTRY
--- NOTE | 2020-02-01 20:19 | NUR ---
UNABLE TO ADMINISTER TX. PT IS ON RA. VITAL SIGNS STABLE. ALERT AND ORIENTED. WILL CONT TO MONITOR
--- NOTE | 2020-02-01 22:00 | NUR ---
NO PO MEDS DUE AT THIS TIME. BLOOD SUGAR FOR 2100 IS 298, GAVE 6 UNITS HUMALOG PER SLIDING SCALE.
--- NOTE | 2020-02-02 | NUR ---
PATIENT VITAL SIGNS STABLE,AFEBRILE, SATING 96% ON RA. ST WITH BBB ON RAIL SWITCHMAN, HR-101.NO COMPLAIN OF PAIN AT THIS TIME.
[2020-02-02 00:13] VITALS: BP 127/78
--- NOTE | 2020-02-02 02:45 | NUR ---
PATIENT PULLED OUT HIS LOPEZ CATHETER AGAIN FOR THE 2ND TIME. NO BLEEDING NOTED. TEXTED DR BROTHERS AND MADE AWARE. AWAITING FOR MD TO CALL BACK.
--- NOTE | 2020-02-02 04:00 | NUR ---
PATIENT VITAL SIGNS STABLE,AFEBRILE, SATING 100% ON RA.NO COMPLAIN OF PAIN AT THIS TIME.
[2020-02-02 04:35] VITALS: BP 152/65
--- NOTE | 2020-02-02 05:08 | NUR ---
DR BROTHERS TEXTED BACK AND AWARE THAT THE PT PULLED OUT HIS LOPEZ CATHETER. MD ORDERED TO HOLD OFF WITH THE LOPEZ FOR NOW.
[2020-02-02] MEDS: INSULIN LISPRO SLIDING SCALE 100 UNITS/ML VIAL SUBQ PRN ×4 (06:26→21:35)
[2020-02-02] MEDS: BLOOD GLUCOSE MONITORING 1 DEV DEV FS SCH ×4 (06:32→21:27)
[2020-02-02 07:00] LABS: BASOPHILS # (AUTO) 0.1 K/uL (0.00-0.22); BASOPHILS % (AUTO) 0.8 % (0.0-2.0); EOSINOPHILS # (AUTO) 0.1 K/uL (0-0.4); EOSINOPHILS % (AUTO) 1.2 % (0.0-4.0); HEMATOCRIT 23.9 % (36-52); HEMOGLOBIN 7.9 g/dL (12.0-18.0); LYMPHOCYTES # (AUTO) 1.6 K/uL (2.0-11.5); LYMPHOCYTES % (AUTO) 20.1 % (20.5-51.1); MEAN CORPUSCULAR HEMOGLOBIN 28 pg (27-31); MEAN CORPUSCULAR HGB CONC 33 g/dL (33-37); MONOCYTES # (AUTO) 0.7 K/uL (0.8-1.0); MONOCYTES % (AUTO) 8.3 % (1.7-9.3); NEUTROPHILS # (AUTO) 5.5 K/uL (1.8-7.7); NEUTROPHILS % (AUTO) 69.6 % (42.2-75.2); PLATELET COUNT (AUTO) 255 K/uL (140-450); RED BLOOD CELL COUNT(AUTO) 2.81 MIL/uL (4.20-6.10); RED CELL DISTRIBUTION WIDTH 14.5 % (11.6-13.7); WHITE BLOOD COUNT (AUTO) 7.9 K/uL (4.8-10.8)
[2020-02-02] MEDS: ALBUTEROL SULFATE/IPRATROPIU 3 ML SOL IH SCH ×3 (07:12→20:11)
[2020-02-02 07:20] LABS: ANION GAP 14.8 (8-16); CARBON DIOXIDE 23.2 mmol/L (21-32); CHLORIDE 106 mmol/L (98-107); CREATININE 0.6 mg/dL (0.6-1.3); GLUCOSE 244 mg/dL (74-106); SODIUM SERUM 141 mmol/L (136-145); UREA NITROGEN, BLOOD 0 mg/dL (7-18)
[2020-02-02 07:21] LABS: MAGNESIUM 1.8 mg/dL (1.8-2.4)
--- NOTE | 2020-02-02 07:30 | NUR ---
RECEIVED BEDSIDE REPORT FROM ASSISTANT OPERATOR NURSE. PT IN BED, AWAKE AND CONFUSED. HOB 30 DEGREES, BREATHING EVEN AND UNLABORED, NO SIGNS OF ACUTE DISTRESS NOTED. R FEMORAL DRESSING CLEAN DRY AND INTACT. RETORT OR CONDENSER PRESS OPERATOR IN PLACE. NO IV ACCESS, OK PER MD ACCORDING TO ASSISTANT OPERATOR NURSE, LOPEZ RECOMMENDED BY UROLOGY BUT NOT IN PLACE DUE TO PT CONFUSED AND REMOVED IT TWICE. BED IN LOW POSITION, SAFETY MEASURES IN PLACE, FALL RISK PRECAUTIONS IN PLACE, BED IN LOW POSITION. RETORT OR CONDENSER PRESS OPERATOR IN PLACE.
[2020-02-02 08:00] VITALS: BP 138/54
[2020-02-02] MEDS: AZITHROMYCIN 250 MG TAB PO SCH (08:55)
[2020-02-02] MEDS: TAMSULOSIN 0.4 MG CAP PO SCH (08:56)
--- NOTE | 2020-02-02 09:01 | NUR ---
ADMINISTERED SCHEDULED AM MEDICATIONS PER MD ORDER, 40 MEQ K-DUR ADMINISTERED FOR LOW POTASSIUM LEVEL 3.0 FROM AM LAB, MEDS EDUCATION PROVIDED TO PATIENT, REINFORCEMENT NEEDED DUE TO MENTAL STATUS, PATIENT IS AWAKE AND ALERT, ONLY ABLE TO SAY HIS NAME, AND PLACE, DOES NOT FOLLOW COMMAND, PATIENT TOLERATED PO MEDS WELL WITH WATER. PATIENT IS EATING BREAKFAST ON BED AT THIS TIME. NO SIGNS OF ACUTE DISTRESS NOTED. TELE MONITOR REMOVED BY PATIENT, REAPPLIED, AND EDUCATED PATIENT ON NOT REMOVING TELE MONITOR, PATIENT SAID OK. SAFETY MEASURES IN PLACE. BED IN LOW POSITION, CALL LIGHT WITHIN REACH, BED LOCKED, INSTRUCTED AND DEMONSTRATED TO PATIENT TO USE THE CALL LIGHT FOR ANY ASSISTANCE AND PATIENT SAID OK.
--- NOTE | 2020-02-02 09:40 | NUR ---
DR BROTHERS ROUNDING ON PATIENT, INFORMED OF PT NEED FOR DVT PROPHYLAXIS. DR BROTHERS ORDERED LOVENOX 1 UNIT/KG SUBQ DAILY. ORDER SENT TO PHARMACY.
--- NOTE | 2020-02-02 09:42 | NUR ---
PT IN BED RESTING, AWAKE, CONTINUES TO BE CONFUSED. BED IN LOW POSITION, CALL LIGHT WITHIN REACH. REINFORCEMENT PROVIDED ON STAYING IN BED, KEEPING AIRPORT ELECTRICIAN IN PLACE, AND USE OF CALL LIGHT. SAFETY MEASURES IN PLACE. FALL PRECAUTIONS IN PLACE. AIRPORT ELECTRICIAN IN PLACE.
--- NOTE | 2020-02-02 11:25 | NUR ---
CALLED JAROD OIL DEVELOPER AT [facility], STATED THAT THEY ARE NOT ACCEPTING ADMISSIONS RIGHT NOW. CALLED LADY DEMERTIO MIGUEL AT [facility], STATED THAT THEY ARE NOT ACCEPTING ANY ADMISSIONS TODAY WELL. DENEEN JIN MADE AWARE.
[2020-02-02 12:00] VITALS: BP 153/92
--- NOTE | 2020-02-02 12:20 | NUR ---
BLOOD GLUCOSE CHECK, 391, 10 UNITS HUMALOG ADMINISTERED. PT MED EDUCATION PROVIDED, REINFORCEMENT NEEDED. PT REORIENTED TO UNIT, CALL LIGHT. PT IN BED, BED IN LOW POSITION, CALL LIGHT WITHIN REACH. SAFETY MEASURES IN PLACE. COPER HAND IN PLACE. FALL PRECAUTIONS ACTIVATED.
--- NOTE | 2020-02-02 13:45 | NUR ---
CLEANED SURGICAL WOUND WITH BETADINE. TOTAL [address] SECURED WITH ISLAND DRESSING. PT TOLERATED WELL. WOUND EDUCATION PROVIDED, INSTRUCTED PT NOT TO REMOVE DRESSING.
--- NOTE | 2020-02-02 14:06 | NUR ---
STARTED NEW IV R UPPER ARM 24 G. SECURED WITH KERLEX, INSTRUCTED PT NOT TO REMOVE IV. MED EDUCATION PROVIDED, REINFORCEMENT NEEDED DUE TO CHRONIC MENTAL STATUS. BED IN LOW POSITION, CALL LIGHT WITHIN REACH. SAFETY MEASURES IN PLACE, FALL PRECAUTIONS IN PLACE.
--- NOTE | 2020-02-02 14:18 | NUR ---
02/02/20 RD INITIAL ASSESSMENT COMPLETED. PLEASE REFER TO NUTRITION ASSESSMENT UNDER CARE ACTIVITY FOR ESTIMATED NUTRITIONAL NEEDS. RD RECOMMENDATIONS: 1. RECOMMEND CONTINUE 60G CCHO DIET 2. ENCOURAGE / ASSIST WITH PO INTAKE NEEDED 3. F/U 3-5 DAYS; MODERATE RISK NIA GRANT MBA, RD
[2020-02-02] MEDS: HYDROcodone/APAP 5/325 MG 1 TAB TAB PO PRN ×2 (14:21→22:19)
--- NOTE | 2020-02-02 14:22 | NUR ---
NEW BAG OF ABX STARTED PER MD ORDER. PT COMPLAINED OF UNRELIEVED PAIN EVEN AFTER NON PHARMACOLOGICAL INTERVENTIONS. PRN PAIN MED ADMINISTERED. MED EDUCATION PROVIDED, REINFORCEMENT NEEDED. BED IN LOW POSITION, SAFETY MEASURES IN PLACE, FALL PRECAUTIONS IN PLACE.
--- NOTE | 2020-02-02 15:19 | NUR ---
PATIENT IS RESTING ON BED AT THIS TIME. DENIED PAIN, SOB AND ANY DISTRESS NOTED. NO SIGNS OF ACUTE DISTRESS NOTED. FALL RISK PROTOCOL IN PLACE. BED IN LOW POSITION AND CALL LIGHT WITHIN REACH. INSTRUCTED PATIENT NOT TO GET OUT OF BED AND USE THE CALL LIGHT FOR ANY ASSISTANCE AND PATIENT SAID OK.
[2020-02-02] MEDS ORDERED: HEPARIN (15:22)
[2020-02-02] MEDS ORDERED: CEPH250C16 PO (15:23)
[2020-02-02 16:00] VITALS: BP 110/68
--- NOTE | 2020-02-02 16:55 | NUR ---
BLOOD GLUCOSE CHECKED, 213, 4 UNITS HUMALOG ADMINISTERED. MED EDUCATION PROVIDED, REINFORCEMENT NEEDED.
--- NOTE | 2020-02-02 16:58 | NUR ---
CALLED [facility] [phone] AND SPOKE WITH TO MERLE OBTAIN VACCINATION RECORD. PER MERLE, SHE DOES NOT HAVE ACCESS TO MEDICAL RECORD AND THE [facility] IS ONE THAT ABLE TO PROVIDE THE INFORMATION, HOWEVER, SHE IS NOT IN HER OFFICE AT THIS TIME. PROVIDED A CALL BACK NUMBER TO MERLE, PER MERLE, SHE WILL LEAVE A MESSAGE TO JAILENE AND HAVE HER TO CALL BACK.
--- NOTE | 2020-02-02 17:08 | NUR ---
CALLED [facility] [phone] AND SPOKE TO JOCELYNE, INFORMED JOCELYNE THAT PATIENT WILL BE TRANSFER TO HIS FACILITY WITH [facility] AT 0900 TOMORROW, JOCELYNE WAS AWARE AND ASKED TO CALL BACK TOMORROW TO GIVE REPORT DUE TO IT'S A NEW SHIFT. WILL ENDORSE TO ONCOMING SHIFT RN.
--- NOTE | 2020-02-02 19:40 | NUR ---
ENDORSED PT TO DITCHER NURSE FOR CONTINUITY OF CARE. INFORMED DC ORDERS IN, WILL BE TRANSFERRED TOMORROW AM. REPORT HAS NOT BEEN GIVEN, WOUND PICTURE HAS NOT BEEN TAKEN. DITCHER NURSE AWARE. PT IN STABLE CONDITION.
--- NOTE | 2020-02-02 19:41 | NUR ---
RECEIVED REPORT FROM YULI RNENZO. PT AOX2 ON ROOM AIR, CONFUSED. RESPIRATIONS EVEN AND UNLABORED. NO DISTRESS NOTED. 9IV SITE ALDO 24G, PATENT AND INTACT, S.L. HAS RIGHT FEMORAL DRESSING, CLEAN DRY INTACT. SAFETY MEASURES IN PLACE. CALL LIGHT WITHIN REACH. WILL CONTINUE TO MONITOR
[2020-02-02 20:00] VITALS: BP 128/68
--- NOTE | 2020-02-02 21:05 | NUR ---
ADMINISTERED SCHEDULED MED. PT TOLERATED WELL. WILL CONTINUE TO MONITOR
--- NOTE | 2020-02-02 21:36 | NUR ---
PT BLOOD SUGAR 193. ADMINISTERED 2 UNITS INSULIN PER SLIDING SCALE, TOLERATED WELL. WILL CONTINUE TO MONITOR
--- NOTE | 2020-02-02 23:45 | NUR ---
PT ASLEEP IN BED. RESPIRATIONS EVEN AND UNLABORED. NO DISTRESS NOTED. WILL CONTINUE TO MONITOR
--- NOTE | 2020-02-03 02:24 | NUR ---
PT ASLEEP IN BED. RESPIRATIONS EVEN AND UNLABORED. WILL CONTINUE TO MONITOR
[2020-02-03 04:00] VITALS: BP 126/74
[2020-02-03] MEDS: BLOOD GLUCOSE MONITORING 1 DEV DEV FS SCH (05:18)
[2020-02-03] MEDS: INSULIN LISPRO SLIDING SCALE 100 UNITS/ML VIAL SUBQ PRN (06:07)
--- NOTE | 2020-02-03 06:09 | NUR ---
ADMINISTERED 4 UNITS INSULIN PER SLIDING SCALE FOR PT BLOOD SUGAR 205, TOLERATED WELL. WILL CONTINUE TO MONITOR
[2020-02-03 06:19] LABS: BASOPHILS # (AUTO) 0.1 K/uL (0.00-0.22); BASOPHILS % (AUTO) 0.8 % (0.0-2.0); EOSINOPHILS # (AUTO) 0.2 K/uL (0-0.4); EOSINOPHILS % (AUTO) 2.1 % (0.0-4.0); HEMATOCRIT 24.4 % (36-52); HEMOGLOBIN 8.2 g/dL (12.0-18.0); LYMPHOCYTES # (AUTO) 1.4 K/uL (2.0-11.5); LYMPHOCYTES % (AUTO) 19.3 % (20.5-51.1); MEAN CORPUSCULAR HEMOGLOBIN 29 pg (27-31); MEAN CORPUSCULAR HGB CONC 34 g/dL (33-37); MONOCYTES # (AUTO) 0.7 K/uL (0.8-1.0); MONOCYTES % (AUTO) 9.4 % (1.7-9.3); NEUTROPHILS # (AUTO) 5.1 K/uL (1.8-7.7); NEUTROPHILS % (AUTO) 68.4 % (42.2-75.2); PLATELET COUNT (AUTO) 302 K/uL (140-450); RED BLOOD CELL COUNT(AUTO) 2.87 MIL/uL (4.20-6.10); RED CELL DISTRIBUTION WIDTH 14.5 % (11.6-13.7); WHITE BLOOD COUNT (AUTO) 7.4 K/uL (4.8-10.8)
[2020-02-03 07:08] LABS: PHOSPHORUS 3.4 mg/dL (2.5-4.9)
--- NOTE | 2020-02-03 07:10 | NUR ---
RECEIVED REPORT FROM NIGHT NURSE FOR CONTINUITY OF CARE, PT AAOX2, PT LAYING IN BED WITH NO GOWN ON, PT STATES HE IS FINE, PT IS LUXEMBOURGER SPEAKING, PT HAS ALDO 24G SALINE LOCK, PT IS S/P HIP SURGERY WITH NEELIMA, SAFETY MEASURES IN PLACE, WILL CONTINUE TO MONITOR.
--- NOTE | 2020-02-03 07:15 | NUR ---
ENDORSED PT TO DAY RN FOR CONTINUITY OF CARE. PT IS IN STABLE CONDITION
[2020-02-03 07:23] LABS: ANION GAP 16.4 (8-16); CHLORIDE 108 mmol/L (98-107); CREATININE 0.6 mg/dL (0.6-1.3); GLUCOSE 237 mg/dL (74-106); POTASSIUM 3.4 mmol/L (3.5-5.1); SODIUM SERUM 144 mmol/L (136-145)
[2020-02-03 08:11] LABS: UREA NITROGEN, BLOOD 23 mg/dL (7-18)
--- NOTE | 2020-02-03 08:20 | NUR ---
CALLED [facility] AND GAVE REPORT TO LADY, PT BEING TRANSFERRED THERE FOR PT. NOTIFIED PT FAMILY DEBORAH THAT PT IS GOING TO [facility].
[2020-02-03] MEDS: ALBUTEROL SULFATE/IPRATROPIU 3 ML SOL IH SCH (08:43)
[2020-02-03] MEDS ORDERED: ENOXAPARIN 30 MG/0.3 ML SYR SUBQ SCH (09:00)
[2020-02-03] MEDS: AZITHROMYCIN 250 MG TAB PO SCH (09:00)
[2020-02-03] MEDS: TAMSULOSIN 0.4 MG CAP PO SCH (09:00)
--- NOTE | 2020-02-03 09:05 | NUR ---
ADMINISTERED SCHEDULED MEDICATION, MEDICATION EDUCATION PROVIDED, PT TOLERATED WELL, PT IS STABLE, WILL CONTINUE TO MONITOR.
--- NOTE | 2020-02-03 09:30 | NUR ---
PT DISCHARGED TO [facility], TRANSPORTED BY [facility], PT STABLE
== END 2020-02-03 09:30 | DRG 481 ==
LOC: MED 20:29 → MTU 01-29 00:21
PROVIDERS: ADMIT Family Medicine; ATTEND Family Medicine
PROC: 0QS634Z Reposition Right Upper Femur with Internal Fixation Device, Percutaneous Approach (ICD-10-PCS; principal; 2020-01-30 16:30)
PROC: 30233N1 Transfusion of Nonautologous Red Blood Cells into Peripheral Vein, Percutaneous Approach (ICD-10-PCS; 2020-01-31)
DX: S72.141A Displaced intertrochanteric fracture of right femur, initial encounter for closed fracture (principal); N39.0 Urinary tract infection, site not specified; Z66 Do not resuscitate; D64.9 Anemia, unspecified; E11.65 Type 2 diabetes mellitus with hyperglycemia; E83.39 Other disorders of phosphorus metabolism; E87.6 Hypokalemia; G30.9 Alzheimer's disease, unspecified; F02.80 Dementia in other diseases classified elsewhere, unspecified severity, without behavioral disturbance, psychotic disturbance, mood disturbance, and anxiety; I25.10 Atherosclerotic heart disease of native coronary artery without angina pectoris; N28.1 Cyst of kidney, acquired; N40.1 Benign prostatic hyperplasia with lower urinary tract symptoms; R33.8 Other retention of urine; W18.30XA Fall on same level, unspecified, initial encounter; Z20.828 Contact with and (suspected) exposure to other viral communicable diseases; Z87.01 Personal history of pneumonia (recurrent); Y93.89 Activity, other specified; Y92.129 Unspecified place in nursing home as the place of occurrence of the external cause; Y99.8 Other external cause status; Z79.899 Other long term (current) drug therapy
CPT/HCPCS: 36415; 36600; 71045; 72170; 73502; 73700; 77003; 80048; 80053; 81001; 82140; 82150; 82550; 82803; 82948; 83036; 83605; 83690; 83735; 83880; 84100; 84134; 84154; 84436; 84443; 84484; 85025; 85610; 85730; 86886; 86900; 86901; 86920; 87040; 87081; 87086; 93005; 94640; 96374; 97110; 97112; 97116; 97161-GP; 97530; 99285; C1713; C1763; J0330; J0696; J1100; J1644; J1815; J2060; J2175; J2250; J2270; J2405; J2710; J2765; J3010; J3490; J7060; P9016